=== PATIENT | female | born 1950 | race Caucasian/White ===

== ENCOUNTER 2016-09-04 21:58 | Emergency (ER) | payer MEDICARE, OTHER ==
[~2016-09-04 21:58] MED LIST: ADVAIR DISK2 IN; ALENDRONATE70 MG PO; ALLEGRA180 MG PO; AMOXICILLIN500 MG PO; ANTIVERT12.5 MG PO; ATIVAN0.5 MG PO; ATIVAN1 MG PO; BUPROPION150 M4 PO; BUSPAR30 MG PO; BUSPIRONE15 MG OR; CEFUROXIME500 MG OR; CELEBREX100 M1 PO; CHANTIX1 MG OR; CIPROFLOXACN500 MG PO; CLONAZEP ODT1 MG PO; CLONAZEPAM1 MG PO; DARVOCET N-100100 - OR; KLONOPIN1 MG PO; MECLIZINE25 MG PO; METRONIDAZOL500 MG PO; NORCO1 TAB PO; PHENERGAN25 MG/TAB PO; PREVPAC PO; PRILOSEC40 MG PO; PROVENTIL HFA IN; PROZAC20 MG PO; RANITIDINE150 MG OR; RESTORIL15 MG PO; RISPERDAL2 MG OR; RISPERDAL3 M1 PO; SEROQUEL200 MG OR; SEROQUEL400 MG OR; SPIRIVA HANDIHALER IN; SYNTHROID50 MCG PO; TEMAZEPAM30 MG PO; TRAZODONE150 MG PO; ULTRAM50 MG OR; WELLBUTRIN SR150 MG OR; WELLBUTRIN200 MG OR; WELLBUTRIN200 MG PO; ZANTAC150 M1 PO; ZPAK PO
== END 2016-09-04 22:10 | disposition left against medical advice (07) ==
LOC: ED 21:58 → LWOBS 22:10
DX: Z91.19 Patient's noncompliance with other medical treatment and regimen (principal)

== ENCOUNTER 2016-09-17 20:15 | Emergency (ER) | payer MEDICARE, OTHER ==
[~2016-09-17] VITALS: Ht 165.1 cm; Wt 98.0 kg
[2016-09-17 21:37] LABS: HEMATOCRIT 38.1 % (37.0-47.0); HEMOGLOBIN 12.8 g/dl (12.0-16.0); IMMATURE GRANULOCYTES 0.4 % (0.0-1.0); MEAN CELL VOLUME 90.3 fL CALC (80.0-100.0); MEAN CORPUSCULAR HGB 30.3 pG CALC (26.0-32.0); MEAN CORPUSCULAR HGB CONC 33.6 g/L CALC (32.0-36.0); NEUT# 7.96 thou/uL (2.00-7.15); RED BLOOD COUNT 4.22 mill/uL (4.20-5.60); RED CELL DISTRI WIDTH 18.5 % (11.5-15.5)
[2016-09-17 21:38] LABS: URINE BILIRUBIN - DIPSTICK NEGATIVE (NEGATIVE); URINE BLOOD DIPSTICK NEGATIVE (NEGATIVE); URINE CLARITY CLEAR; URINE COLOR YELLOW; URINE GLUCOSE - DIPSTICK NEGATIVE (NEGATIVE); URINE KETONE NEGATIVE (NEGATIVE); URINE LEUK ESTERASE TRACE (NEGATIVE); URINE NITRITE - DIPSTICK NEGATIVE (Negative); URINE PROTEIN - DIPSTICK NEGATIVE (NEG-TRACE); URINE SPECIFIC GRAVITY <=1.005; URINE UROBILINOGEN - DIPSTICK 0.2 E.U./dL (0.2)
[2016-09-17 21:59] LABS: ALBUMIN 3.8 g/dL (3.2-5.0); ALKALINE PHOSPHATASE 147 u/l (38-126); ANION GAP 14 (6-22 (CALC)); BILIRUBIN, TOTAL 0.4 mg/dL (0.0-1.4); BUN 4 mg/dL (8-23); BUN/CREATININE RATIO 5 (12-20 (CALC)); CALCIUM 9.2 mg/dL (8.4-10.2); CARBON DIOXIDE 27 mmol/l (22-30); CHLORIDE 96 mmol/l (95-108); CREATININE 0.8 mg/dL (0.5-1.0); GFR > 60 ML/MIN (>=60 (CALC)); GFR FOR AFR.AMER. > 60 ML/MIN (>=60 (CALC)); GLUCOSE 109 mg/dL (82-115); POTASSIUM 3.9 mmol/l (3.5-5.1); SGOT/AST 19 u/l (9-36); SGPT/ALT 26 u/l (11-66); SODIUM 133 mmol/l (137-146); TOTAL PROTEIN 7.1 g/dL (6.3-8.2)
[2016-09-17 22:11] LABS: MYOGLOBIN 49 ng/mL (0 - 62)
[2016-09-17 23:19] VITALS: BP 148/76
== END 2016-09-17 23:00 | disposition left against medical advice (07) ==
LOC: ED 20:15
PROVIDERS: Emergency Medicine
DX: R55 Syncope and collapse (principal); Z91.19 Patient's noncompliance with other medical treatment and regimen; R00.0 Tachycardia, unspecified

== ENCOUNTER 2016-11-13 03:59 | Emergency (ER) | payer MEDICARE, MEDICAID ==
[~2016-11-13] VITALS: Ht 165.1 cm; Wt 96.0 kg
[2016-11-13 04:59] LABS: HEMOGLOBIN 13.4 g/dl (12.0-16.0); IMMATURE GRANULOCYTES 0.6 % (0.0-1.0); MEAN CORPUSCULAR HGB 30.8 pG CALC (26.0-32.0); MEAN CORPUSCULAR HGB CONC 33.5 g/L CALC (32.0-36.0); NEUT# 8.94 thou/uL (2.00-7.15); RED BLOOD COUNT 4.35 mill/uL (4.20-5.60); RED CELL DISTRI WIDTH 14.2 % (11.5-15.5)
[2016-11-13 05:12] LABS: ALBUMIN 4.6 g/dL (3.2-5.0); ALKALINE PHOSPHATASE 160 u/l (38-126); AMYLASE 39 u/l (30-110); ANION GAP 23 (6-22 (CALC)); BUN 5 mg/dL (8-23); BUN/CREATININE RATIO 9 (12-20 (CALC)); CALCIUM 9.5 mg/dL (8.4-10.2); CARBON DIOXIDE 26 mmol/l (22-30); CHLORIDE 83 mmol/l (95-108); CREATININE 0.6 mg/dL (0.5-1.0); GFR > 60 ML/MIN (>=60 (CALC)); GFR FOR AFR.AMER. > 60 ML/MIN (>=60 (CALC)); GLUCOSE 146 mg/dL (82-115); LIPASE < 10 u/l (23-300); POTASSIUM 3.4 mmol/l (3.5-5.1); SGOT/AST 22 u/l (9-36); SGPT/ALT 28 u/l (11-66); SODIUM 129 mmol/l (137-146); TOTAL PROTEIN 8.5 g/dL (6.3-8.2)
[2016-11-13 05:22] LABS: MYOGLOBIN 54 ng/mL (0 - 62)
[2016-11-13 06:01] LABS: URINE BLOOD DIPSTICK SMALL (NEGATIVE); URINE CLARITY CLEAR; URINE COLOR YELLOW; URINE GLUCOSE - DIPSTICK NEGATIVE (NEGATIVE); URINE KETONE >=80 mg/dL (NEGATIVE); URINE LEUK ESTERASE NEGATIVE (NEGATIVE); URINE NITRITE - DIPSTICK NEGATIVE (Negative); URINE PROTEIN - DIPSTICK TRACE mg/dL (NEG-TRACE); URINE SPECIFIC GRAVITY >=1.030; URINE UROBILINOGEN - DIPSTICK 0.2 E.U./dL (0.2)
[2016-11-13 06:03] LABS: URINE BILIRUBIN - DIPSTICK NEGATIVE (NEGATIVE)
[2016-11-13 06:11] LABS: URINE BACTERIA FEW hpf; URINE HYALINE CAST FEW lpf (NONE-RARE); URINE MUCUS FEW hpf (NONE-FEW); URINE SQUAMOUS EPITHELIAL CELL MODERATE EPI/hpf (0-FEW)
[2016-11-13 08:53] VITALS: BP 166/99
== END 2016-11-13 08:54 | disposition short-term general hospital (02) ==
LOC: ED 03:59
PROVIDERS: Emergency Medicine
DX: S22.069A Unspecified fracture of T7-T8 vertebra, initial encounter for closed fracture (principal); R09.02 Hypoxemia; E87.1 Hypo-osmolality and hyponatremia; R11.2 Nausea with vomiting, unspecified; R10.12 Left upper quadrant pain; F43.10 Post-traumatic stress disorder, unspecified; E78.5 Hyperlipidemia, unspecified; M19.90 Unspecified osteoarthritis, unspecified site; K21.9 Gastro-esophageal reflux disease without esophagitis; F41.9 Anxiety disorder, unspecified; J44.9 Chronic obstructive pulmonary disease, unspecified; F17.210 Nicotine dependence, cigarettes, uncomplicated; X58.XXXA Exposure to other specified factors, initial encounter
CPT/HCPCS: Q9967; S0164

== ENCOUNTER 2016-11-27 05:19 | Emergency (ER) | payer MEDICARE, OTHER ==
[~2016-11-27] VITALS: Ht 165.1 cm; Wt 90.9 kg
[2016-11-27 06:47] LABS: ALBUMIN 4.1 g/dL (3.2-5.0); ALKALINE PHOSPHATASE 128 u/l (38-126); AMYLASE 39 u/l (30-110); ANION GAP 16 (6-22 (CALC)); BILIRUBIN, TOTAL 0.7 mg/dL (0.0-1.4); BUN 13 mg/dL (8-23); BUN/CREATININE RATIO 17 (12-20 (CALC)); CALCIUM 9.7 mg/dL (8.4-10.2); CARBON DIOXIDE 32 mmol/l (22-30); CHLORIDE 89 mmol/l (95-108); CREATININE 0.7 mg/dL (0.5-1.0); GFR > 60 ML/MIN (>=60 (CALC)); GFR FOR AFR.AMER. > 60 ML/MIN (>=60 (CALC)); GLUCOSE 135 mg/dL (82-115); LIPASE 19 u/l (23-300); POTASSIUM 3.3 mmol/l (3.5-5.1); SGOT/AST 16 u/l (9-36); SGPT/ALT 35 u/l (11-66); SODIUM 134 mmol/l (137-146); TOTAL PROTEIN 7.2 g/dL (6.3-8.2)
[2016-11-27 06:53] LABS: HEMATOCRIT 41.6 % (37.0-47.0); HEMOGLOBIN 13.8 g/dl (12.0-16.0); IMMATURE GRANULOCYTES 0.4 % (0.0-1.0); MEAN CELL VOLUME 92.7 fL CALC (80.0-100.0); MEAN CORPUSCULAR HGB 30.7 pG CALC (26.0-32.0); MEAN CORPUSCULAR HGB CONC 33.2 g/L CALC (32.0-36.0); NEUT# 10.53 thou/uL (2.00-7.15); RED BLOOD COUNT 4.49 mill/uL (4.20-5.60)
[2016-11-27 07:33] LABS: URINE BLOOD DIPSTICK TRACE-INTACT (NEGATIVE); URINE CLARITY SLIGHT CLOUDY; URINE COLOR YELLOW; URINE GLUCOSE - DIPSTICK NEGATIVE (NEGATIVE); URINE KETONE 15 mg/dL (NEGATIVE); URINE PH 6.5 (4.5-8.0); URINE PROTEIN - DIPSTICK TRACE mg/dL (NEG-TRACE)
[2016-11-27 07:37] LABS: URINE LEUK ESTERASE LARGE (NEGATIVE); URINE NITRITE - DIPSTICK POSITIVE (Negative)
[2016-11-27 07:38] LABS: URINE BILIRUBIN - DIPSTICK NEGATIVE (NEGATIVE)
[2016-11-27 07:41] LABS: URINE BACTERIA MANY hpf; URINE RBC 0-2 RBC/hpf (0-5); URINE WBC 50-100 WBC/hpf (0-5)
[2016-11-27] MEDS ORDERED: PERCOCET1 TA2 PO (07:48)
[2016-11-27] MEDS ORDERED: CEPHALEXIN500 MG PO (07:48)
[2016-11-27] MEDS ORDERED: ZOFRAN4 M1 PO (07:48)
[2016-11-27 08:13] VITALS: BP 172/88
== END 2016-11-27 08:13 | disposition home or self-care (01) ==
LOC: ED 05:19
PROVIDERS: Emergency Medicine
PROC: 0T9B70Z Drainage of Bladder with Drainage Device, Via Natural or Artificial Opening (ICD-10-PCS; principal; 2016-11-27)
DX: N39.0 Urinary tract infection, site not specified (principal); R10.12 Left upper quadrant pain; R11.2 Nausea with vomiting, unspecified; R19.7 Diarrhea, unspecified; R00.0 Tachycardia, unspecified; Z98.890 Other specified postprocedural states; B96.20 Unspecified Escherichia coli [E. coli] as the cause of diseases classified elsewhere; Z16.12 Extended spectrum beta lactamase (ESBL) resistance; R42 Dizziness and giddiness; F43.10 Post-traumatic stress disorder, unspecified
CPT/HCPCS: S0164

== ENCOUNTER 2017-03-31 11:54 | Emergency (ER) | payer MEDICARE, OTHER ==
[~2017-03-31] VITALS: Ht 165.1 cm; Wt 86.3 kg
[~2017-03-31 11:54] MED LIST changes: +CEPHALEXIN500 MG PO; +PERCOCET1 TA2 PO; +ZOFRAN4 M1 PO
[2017-03-31 13:06] LABS: HEMATOCRIT 37.3 % (37.0-47.0); HEMOGLOBIN 11.9 g/dl (12.0-16.0); IMMATURE GRANULOCYTES 0.4 % (0.0-1.0); MEAN CELL VOLUME 99.7 fL CALC (80.0-100.0); MEAN CORPUSCULAR HGB 31.8 pG CALC (26.0-32.0); MEAN CORPUSCULAR HGB CONC 31.9 g/L CALC (32.0-36.0); NEUT# 6.29 thou/uL (2.00-7.15); RED BLOOD COUNT 3.74 mill/uL (4.20-5.60); RED CELL DISTRI WIDTH 15.3 % (11.5-15.5)
[2017-03-31 13:24] LABS: ALBUMIN 3.7 g/dL (3.2-5.0); ALKALINE PHOSPHATASE 182 u/l (38-126); ANION GAP 13 (6-22 (CALC)); BILIRUBIN, TOTAL 0.4 mg/dL (0.0-1.4); BUN 5 mg/dL (8-23); BUN/CREATININE RATIO 8 (12-20 (CALC)); CARBON DIOXIDE 33 mmol/l (22-30); CHLORIDE 96 mmol/l (95-108); CREATININE 0.7 mg/dL (0.5-1.0); GFR > 60 ML/MIN (>=60 (CALC)); GFR FOR AFR.AMER. > 60 ML/MIN (>=60 (CALC)); SGOT/AST 28 u/l (9-36); SGPT/ALT 35 u/l (11-66); SODIUM 138 mmol/l (137-146); TOTAL PROTEIN 6.4 g/dL (6.3-8.2)
[2017-03-31] MEDS ORDERED: MEDDOSEPAK PO (14:25)
[2017-03-31] MEDS ORDERED: ZITHROMAX250 MG PO (14:25)
[2017-03-31] MEDS ORDERED: RISPERDAL2 MG PO ×2 (14:27→14:28)
[2017-03-31] MEDS ORDERED: BUSPAR5 MG PO (14:28)
[2017-03-31] MEDS ORDERED: CLONAZEPAM1 MG PO (14:28)
[2017-03-31] MEDS ORDERED: PERCOCET 5/325M1 TAB PO (14:29)
[2017-03-31] MEDS ORDERED: PROZAC10 MG PO (14:29)
[2017-03-31 14:30] VITALS: BP 119/71
== END 2017-03-31 14:40 | disposition home or self-care (01) ==
LOC: ED 11:54
PROVIDERS: Emergency Medicine
DX: J44.1 Chronic obstructive pulmonary disease with (acute) exacerbation (principal); R06.02 Shortness of breath; Z99.81 Dependence on supplemental oxygen

== ENCOUNTER 2017-04-12 19:43 | Emergency (ER) | payer MEDICARE, OTHER ==
[~2017-04-12] VITALS: Ht 165.1 cm; Wt 86.0 kg
[~2017-04-12 19:43] MED LIST changes: +BUSPAR5 MG PO; +MEDDOSEPAK PO; +PERCOCET 5/325M1 TAB PO; +PROZAC10 MG PO; +RISPERDAL2 MG PO; +ZITHROMAX250 MG PO
[2017-04-12 20:50] LABS: HEMATOCRIT 39.8 % (37.0-47.0); HEMOGLOBIN 12.7 g/dl (12.0-16.0); IMMATURE GRANULOCYTES 0.5 % (0.0-1.0); MEAN CELL VOLUME 99.3 fL CALC (80.0-100.0); MEAN CORPUSCULAR HGB 31.7 pG CALC (26.0-32.0); MEAN CORPUSCULAR HGB CONC 31.9 g/L CALC (32.0-36.0); NEUT# 9.85 thou/uL (2.00-7.15); RED BLOOD COUNT 4.01 mill/uL (4.20-5.60); RED CELL DISTRI WIDTH 14.5 % (11.5-15.5)
[2017-04-12 20:51] LABS: URINE BILIRUBIN - DIPSTICK NEGATIVE (NEGATIVE); URINE BLOOD DIPSTICK NEGATIVE (NEGATIVE); URINE COLOR YELLOW; URINE GLUCOSE - DIPSTICK NEGATIVE (NEGATIVE); URINE KETONE NEGATIVE (NEGATIVE); URINE LEUK ESTERASE NEGATIVE (NEGATIVE); URINE NITRITE - DIPSTICK NEGATIVE (Negative); URINE PH 8.5 (4.5-8.0); URINE PROTEIN - DIPSTICK 30 mg/dL (NEG-TRACE); URINE SPECIFIC GRAVITY 1.015; URINE UROBILINOGEN - DIPSTICK 0.2 E.U./dL (0.2)
[2017-04-12 20:55] LABS: URINE CLARITY CLEAR; URINE RBC 0-2 RBC/hpf (0-5); URINE SQUAMOUS EPITHELIAL CELL FEW EPI/hpf (0-FEW); URINE WBC 0-2 WBC/hpf (0-5)
[2017-04-12 21:05] LABS: ALBUMIN 3.7 g/dL (3.2-5.0); ALKALINE PHOSPHATASE 164 u/l (38-126); AMYLASE < 30 u/l (30-110); ANION GAP 15 (6-22 (CALC)); BILIRUBIN, TOTAL 0.3 mg/dL (0.0-1.4); BUN 8 mg/dL (8-23); BUN/CREATININE RATIO 11 (12-20 (CALC)); CARBON DIOXIDE 33 mmol/l (22-30); CHLORIDE 92 mmol/l (95-108); CREATININE 0.7 mg/dL (0.5-1.0); GFR > 60 ML/MIN (>=60 (CALC)); GFR FOR AFR.AMER. > 60 ML/MIN (>=60 (CALC)); LIPASE < 10 u/l (23-300); POTASSIUM 3.5 mmol/l (3.5-5.1); SGOT/AST 17 u/l (9-36); SGPT/ALT 21 u/l (11-66); SODIUM 137 mmol/l (137-146); TOTAL PROTEIN 6.4 g/dL (6.3-8.2)
[2017-04-12] MEDS ORDERED: CIPROFLOXACN500 MG PO (23:50)
[2017-04-13 00:01] VITALS: BP 164/91
== END 2017-04-12 23:53 | disposition home or self-care (01) ==
LOC: ED 19:43
PROVIDERS: Emergency Medicine
PROC: 0T9B70Z Drainage of Bladder with Drainage Device, Via Natural or Artificial Opening (ICD-10-PCS; principal; 2017-04-12)
DX: N39.0 Urinary tract infection, site not specified (principal); R10.31 Right lower quadrant pain
CPT/HCPCS: Q9967

== ENCOUNTER 2017-08-23 20:29 | Emergency (ER) | payer MEDICARE, OTHER ==
[~2017-08-23] VITALS: Ht 165.1 cm; Wt 92.7 kg
[2017-08-23 21:07] LABS: HEMOGLOBIN 11.9 g/dl (12.0-16.0); IMMATURE GRANULOCYTES 0.3 % (0.0-1.0); MEAN CELL VOLUME 98.9 fL CALC (80.0-100.0); MEAN CORPUSCULAR HGB 32.7 pG CALC (26.0-32.0); MEAN CORPUSCULAR HGB CONC 33.1 g/L CALC (32.0-36.0); NEUT# 7.12 thou/uL (2.00-7.15); RED BLOOD COUNT 3.64 mill/uL (4.20-5.60); RED CELL DISTRI WIDTH 15.7 % (11.5-15.5)
[2017-08-23 21:21] LABS: ALBUMIN 3.4 g/dL (3.2-5.0); ALKALINE PHOSPHATASE 129 u/l (38-126); BILIRUBIN, TOTAL 0.2 mg/dL (0.0-1.4); BUN 7 mg/dL (8-23); BUN/CREATININE RATIO 11 (12-20 (CALC)); CARBON DIOXIDE 32 mmol/l (22-30); CHLORIDE 85 mmol/l (95-108); CREATININE 0.6 mg/dL (0.5-1.0); GFR > 60 ML/MIN (>=60 (CALC)); GFR FOR AFR.AMER. > 60 ML/MIN (>=60 (CALC)); SGOT/AST 17 u/l (9-36); SGPT/ALT 21 u/l (11-66); TOTAL PROTEIN 6.7 g/dL (6.3-8.2)
[2017-08-23 21:22] LABS: ANION GAP 15 (6-22 (CALC)); POTASSIUM 2.9 mmol/l (3.5-5.1); SODIUM 129 mmol/l (137-146)
[2017-08-24 00:01] VITALS: BP 146/87
== END 2017-08-24 00:01 | disposition home or self-care (01) ==
LOC: ED 20:29
PROVIDERS: Emergency Medicine
DX: T17.228A Food in pharynx causing other injury, initial encounter (principal); E87.6 Hypokalemia; M19.90 Unspecified osteoarthritis, unspecified site; J43.9 Emphysema, unspecified; X58.XXXA Exposure to other specified factors, initial encounter; Z87.01 Personal history of pneumonia (recurrent); R94.31 Abnormal electrocardiogram [ECG] [EKG]

== ENCOUNTER 2017-12-28 14:02 | Inpatient (IN) | payer MEDICARE, OTHER ==
[~2017-12-28] VITALS: Ht 165.1 cm; Wt 83.1 kg
--- NOTE | 2017-12-28 14:02 | NUR ---
PT IMMEDIATELY TO TX ROOM VIA WC. SPO2 94% ON 2L
--- NOTE | 2017-12-28 14:03 | NUR ---
PT TACHYPNEIC AND SOB, UNABLE TO SPEAK IN COMPLETE SENTENCES. ASSISTED INTO BED WITH HOB ELEVATED, HOME O2@2LPM VIA NC. TRANSFERED TO ROOM O2 OF SAME. PT STATES SHE BECAME DYSPNEIC APPROX 30 MIN WINDOW CLEANER.
[2017-12-28 14:36] LABS: HEMATOCRIT 35.1 % (37.0-47.0); HEMOGLOBIN 11.1 g/dl (12.0-16.0); IMMATURE GRANULOCYTES 0.3 % (0.0-5.0); MEAN CELL VOLUME 99.2 fL CALC (80.0-100.0); MEAN CORPUSCULAR HGB 31.4 pG CALC (26.0-32.0); MEAN CORPUSCULAR HGB CONC 31.6 g/L CALC (32.0-36.0); NEUT# 6.25 thou/uL (2.00-7.15); RED BLOOD COUNT 3.54 mill/uL (4.20-5.60); RED CELL DISTRI WIDTH 14.8 % (11.5-15.5)
[2017-12-28 14:49] LABS: ALKALINE PHOSPHATASE 123 u/l (38-126); ANION GAP 11 (6-22 (CALC)); BILIRUBIN, TOTAL 0.4 mg/dL (0.0-1.4); BUN 9 mg/dL (8-23); BUN/CREATININE RATIO 12 (12-20 (CALC)); CARBON DIOXIDE 36 mmol/l (22-30); CHLORIDE 94 mmol/l (95-108); CREATININE 0.8 mg/dL (0.5-1.0); GFR > 60 ML/MIN (>=60 (CALC)); GFR FOR AFR.AMER. > 60 ML/MIN (>=60 (CALC)); POTASSIUM 3.1 mmol/l (3.5-5.1); SGOT/AST 24 u/l (9-36); SODIUM 138 mmol/l (137-146)
[2017-12-28 14:55] LABS: ALBUMIN 3.9 g/dL (3.2-5.0); TOTAL PROTEIN 7.5 g/dL (6.3-8.2)
--- NOTE | 2017-12-28 15:09 | NUR ---
ASSISTED PT WITH MAKING PHONE CALL TO FAMILY. MAINTAINED SUPINE IN BED WITH HOB ELEVATED. PT RESP EVEN AND UNLABORED. O2 CONTINUES @ 2LPM VIA NC. AWARE OF AWAITING TEST RESULTS.
--- NOTE | 2017-12-28 15:22 | NUR ---
PT UP TO BSC, BECAME SLIGHTLY SOB ,DENIES CHEST PAIN. VSS. CONTINUOUS O2@2LPM VIA NC. RECOVERED EASILY ONCE RETURNED TO BED.
--- NOTE | 2017-12-28 15:50 | NUR ---
JOSE sopke with regarding admission status after reviewing the chart and advised on observation at that time as the CXR was not completed. voiced agrement. JOSE advised a conversation will happen with prior to admission for further consideration. voiced agreement. JOSE then discussed the case with and he reviewed the CXR and stated" the patient has a definite pneumonia and will be admitted as an Inpatient. JOSE stated" it is your decision sir" and left the room.
--- NOTE | 2017-12-28 15:55 | NUR ---
PT ASSISTED TO BEDSIDE COMMODE. PT DENIES COMPLAINTS AT THIS TIME.
[2017-12-28] MEDS ORDERED: HYDROCO/APAP1 TA9 PO (16:33)
--- NOTE | 2017-12-28 16:45 | NUR ---
S: MAGDALENE VIGIL is a 67 F who presents with URI. She has a history of COPD,Emphysema,Arthritis, Pneumonia . All medications in patient's chart were reviewed O: VS: BP 176/93, P 105 , RR 26,T 98.2 W 67kg, HT 65in, Scr=0.8,CrCl= 49.1ml/min A: Blood culture is pending P: Patient is on Azithromycin and Ceftriaxone Vancomycin ordered for pharmacy to dose. Start Vancomycin 1g IV Q12H. Vancomycin trough is drawn before the 4th dose on 12/30/17 @ 0530. Vancomycin goal trough is between 15-20 mcg/ml. Pharmacy will follow and or advise on antibiotics use as needed.
--- NOTE | 2017-12-28 17:02 | NUR ---
CALLED REPORT TO HARRIET ALEXANDER LPN
--- NOTE | 2017-12-28 17:08 | NUR ---
PT ASSISTED UP TO BSC IN NO ACUTE DISTRESS. VSS.
--- NOTE | 2017-12-28 17:11 | NUR ---
PT TRANSPORTED TO ME VIA STRETCHER BY CHARGE NURSE IN STABLE CONDITION
[2017-12-28 17:36] VITALS: BP 187/91
--- NOTE | 2017-12-28 17:58 | NUR ---
PT ARRIVED TO UNIT AT 1711 VIA STRETCHER ACCOMPIANED BY ER STAFF. PT AMBULATED FROM STRETCHER TO BED W/ STEADY GAIT. PT ASSESSMENT COMPLETE. A/OX3. SPEECH IS CLEAR. RESP EVEN AND UNLABORED. LUNG SOUNDS CLEAR. TELE IN PLACE. PT HAS ANXIETY AT THIS TIME DUE TO WORRYING ABOUT IF SHE WILL GET MEDICATION FOR PAIN, BLOOD PRESSURE, AND ANXIETY. DISCUSSED W/ PT ABOUT MEDICATION ADMINISTRATION. ANXIETY LEVEL DECREASED. BOWEL SOUNDS HYPOACTIVE. STRONG RADIAL AND PEDAL PULSES. #20 RAC SL. FLUSHED AND PATENT. SITE APPEARS HEALTHY. SKIN INTACT. PT C/O 10 OUT OF 10 BACK PAIN. REPOSITIONED IN BED FOR COMFORT. POC DISCUSSED. SAFETY PRECAUTIONS IN PLACE. CALL LIGHT IN REACH. WILL CONTINUE TO MONITOR
[2017-12-28 18:10] VITALS: BP 162/85
--- NOTE | 2017-12-28 18:10 | NUR ---
SPOKE W/ DR. RAPP REGARDING PT VS, TEMP, ANXIETY, AND PAIN. BLOOD PRESSURE 162/85 HR 113, TEMP 100.2. NEW MEDICATION ORDERS GIVEN AND SENT TO PHARMACY
--- NOTE | 2017-12-28 19:10 | NUR ---
BEDSIDE REPORT RECEIVED FROM INES LARIOS. PT RESTING IN BED SEMI FOWLERS TALKING ON THE PHONE WITH HER SON; ALERT AND ORIENTED. DENIES PAIN CURRENTLY; STATES THAT PAIN MEDICATION WAS EFFECTIVE. RESPIRATIONS EVEN AND SLIGHTLY LABORED ON OXYGEN. VANCOMYCIN NOW INFUSING. PLAN OF CARE DISCUSSED. PT ENCOURAGED TO VERBALIZE CONCERNS. STATES UNDERSTANDING. SAFETY MEASURES IN PLACE. CALL LIGHT WITHIN REACH.
[2017-12-28 20:00] VITALS: BP 138/85
[2017-12-28 23:10] LABS: URINE BILIRUBIN - DIPSTICK NEGATIVE (NEGATIVE); URINE BLOOD DIPSTICK TRACE-INTACT (NEGATIVE); URINE COLOR YELLOW; URINE GLUCOSE - DIPSTICK NEGATIVE (NEGATIVE); URINE KETONE NEGATIVE (NEGATIVE); URINE LEUK ESTERASE NEGATIVE (NEGATIVE); URINE NITRITE - DIPSTICK NEGATIVE (Negative); URINE PROTEIN - DIPSTICK NEGATIVE (NEG-TRACE); URINE SPECIFIC GRAVITY 1.015; URINE UROBILINOGEN - DIPSTICK 0.2 E.U./dL (0.2)
[2017-12-28 23:12] LABS: URINE CLARITY CLEAR
[2017-12-29] VITALS (7 sets, daily range): BP systolic 145–166; BP diastolic 79–96
--- NOTE | 2017-12-29 | NUR ---
LORTAB GIVEN FOR C/O SEVERE HEADACHE AND COOL CLOTH APPLIED. RESPIRATIONS EVEN AND UNLABORED ON 2L OF OXYGEN. IV SITE APPEARS HEALTHY AND FLUSHES. TELE ON. BLOOD PRESSURE SLIGHTLY ELEVATED AT THIS TIME WILL CONTINUE TO MONITOR. PT IS SBA TO BSC. SAFETY MEASURES IN PLACE. CALL LIGHT WITHIN REACH.
--- NOTE | 2017-12-29 04:37 | NUR ---
PT AMBULATED INTO BATHROOM TO VOID. NO ACUTE CHANGES IN CONDITION THROUGHOUT THE NIGHT.
[2017-12-29 05:13] LABS: HEMATOCRIT 34.8 % (37.0-47.0); IMMATURE GRANULOCYTES 0.5 % (0.0-5.0); MEAN CELL VOLUME 98.9 fL CALC (80.0-100.0); MEAN CORPUSCULAR HGB 31.3 pG CALC (26.0-32.0); MEAN CORPUSCULAR HGB CONC 31.6 g/L CALC (32.0-36.0); NEUT# 8.41 thou/uL (2.00-7.15); RED BLOOD COUNT 3.52 mill/uL (4.20-5.60); RED CELL DISTRI WIDTH 14.8 % (11.5-15.5)
[2017-12-29 05:27] LABS: ALBUMIN 3.7 g/dL (3.2-5.0); ALKALINE PHOSPHATASE 116 u/l (38-126); BILIRUBIN, TOTAL 0.3 mg/dL (0.0-1.4); BUN 8 mg/dL (8-23); BUN/CREATININE RATIO 14 (12-20 (CALC)); CARBON DIOXIDE 35 mmol/l (22-30); CHLORIDE 95 mmol/l (95-108); CREATININE 0.6 mg/dL (0.5-1.0); GFR > 60 ML/MIN (>=60 (CALC)); GFR FOR AFR.AMER. > 60 ML/MIN (>=60 (CALC)); MAGNESIUM 2.3 mg/dL (1.6-2.3); SGOT/AST 16 u/l (9-36); SODIUM 137 mmol/l (137-146); TOTAL PROTEIN 6.9 g/dL (6.3-8.2)
[2017-12-29 05:29] LABS: ANION GAP 11 (6-22 (CALC))
--- NOTE | 2017-12-29 07:00 | NUR ---
REPORT RECEIVED FROM JOHN SALCIDO. PLAN OF CARE REVIEWED. PT STATES UNDERSTANDING. FALL PRECAUTIONS REINFORCED. CALL LIGHT REVIEWED AND IN REACH.
--- NOTE | 2017-12-29 08:15 | NUR ---
PT REPORTS SEVERE HEADACHE. LORTAB PO ADMINISTERED. PT REPORTS MOSTLY PAIN IS RELIEVED. REPORTING OF CONCERNS ENCOURAGED. PT STATES UNDERSTANDING.
--- NOTE | 2017-12-29 13:11 | NUR ---
PT SITTING UPRIGHT IN BED. REPORTS SOME RELIEF OF BACK PAIN, CHRONIC IN NATURE, FROM RECENT LORTAB PO ADMINISTRATION. IS PROVIDED. PT EDUCATED ON USE AND INDICATION. 1000ML INCENTIVE VOLUME ACHIEVED, GOAL OF 1500 ML SET.
--- NOTE | 2017-12-29 17:10 | NUR ---
PT'S FAMILY MEMBERS AT BEDSIDE FOR VISIT. PT REPORTS SOME RELIEF OF BACK PAIN FROM RECENT LORTAB PO ADMINISTRATION. NO OTHER COMPLAINTS AT THIS TIME.
--- NOTE | 2017-12-29 17:30 | NUR ---
PT. AMBULATED IN HALLWAYS W/ TITLE PROCESSOR AND O2 VIA NC. TOLERATED ACTIVITY WELL. REPORTS GENERALIZED WEAKNESS, BUT GAIT STEADY. DENIES DIZZINESS. MILD SOB W/ EXERT NOTED.
--- NOTE | 2017-12-29 20:00 | NUR ---
REPORT RECIEVED FROM OFFGOING NURSE. PT REQUESTED PAIN PILL. LORTAB EFFECTIVE. LUNG SOUNDS DIMINISHED. PT TOLERATED MEDS WELL. POC EXPLAINED TO PT. PT VOICED UNDERSTANDING. BED IN LOWEST POSITION, CALL LIGHT WITHIN REACH. WILL MONITOR.
--- NOTE | 2017-12-30 | NUR ---
PT REQUESTED PAIN PILL FOR BACK PAIN. PAIN MED ADMINITERED. ENCOURAGED TO REPOSITION IN THE BED TO HELP WITH PAIN. PT VOICED UNDERSTANDING. BED IN LOWEST POSITION. CALL LIGHT WITHIN REACH. WILL MONITOR.
[2017-12-30 04:38] VITALS: BP 138/80
[2017-12-30 06:02] LABS: HEMATOCRIT 31.9 % (37.0-47.0); HEMOGLOBIN 10.3 g/dl (12.0-16.0); IMMATURE GRANULOCYTES 0.6 % (0.0-5.0); MEAN CORPUSCULAR HGB 31.3 pG CALC (26.0-32.0); MEAN CORPUSCULAR HGB CONC 32.3 g/L CALC (32.0-36.0); NEUT# 17.63 thou/uL (2.00-7.15); RED BLOOD COUNT 3.29 mill/uL (4.20-5.60)
[2017-12-30 06:09] LABS: ALBUMIN 3.5 g/dL (3.2-5.0); ALKALINE PHOSPHATASE 100 u/l (38-126); BILIRUBIN, TOTAL 0.3 mg/dL (0.0-1.4); BUN 13 mg/dL (8-23); BUN/CREATININE RATIO 24 (12-20 (CALC)); CARBON DIOXIDE 32 mmol/l (22-30); CHLORIDE 89 mmol/l (95-108); CREATININE 0.5 mg/dL (0.5-1.0); GFR > 60 ML/MIN (>=60 (CALC)); GFR FOR AFR.AMER. > 60 ML/MIN (>=60 (CALC)); POTASSIUM 3.6 mmol/l (3.5-5.1); SGOT/AST 16 u/l (9-36); TOTAL PROTEIN 6.6 g/dL (6.3-8.2)
[2017-12-30 06:14] LABS: ANION GAP 13 (6-22 (CALC)); SODIUM 130 mmol/l (137-146)
--- NOTE | 2017-12-30 07:00 | NUR ---
SHIFT CHANGE REPORT FROM FABIANO RIVAS AWAKE ALERT AND ORIENTED, O2 @ 2L VIA NC IN PLACE, TELE MONITOR IN PLACE, C/O LOWER BACK PAIN AND CONCERN ADDRESSED, ASSISTED TO BSC AND BACK TO BED, CALL RUCKER IN REACH.
--- NOTE | 2017-12-30 07:41 | NUR ---
Vancomycin consult Vancomycin single level analysis: Current dose being given: 1000 mg Current dosing interval: 12 hrs Current infusion time (hrs): 2 Single level Trough Data: Trough level obtained: 10 mcg/ml Timing of trough - Number of hours before next dose: 0.5 Hrs Desired peak: 30 mcg/ml Desired trough: 15 mcg/ml New rate constant (karen): 0.087 hr-1 New half-life: 7.97 Hours New Vd from levels: 58.10 Liters (0.7 L/kg) Vancomycin 1500 mg q 12 hrs. Infuse over 2 hrs Expected Cpeak: 37 mcg/ml Expected Ctrough: 15 mcg/ml
[2017-12-30 08:47] VITALS: BP 156/74
--- NOTE | 2017-12-30 10:26 | NUR ---
MEDICAL TEAM HERE ROUNDING AND DISCUSSED PLAN OF CARE WITH PT, D/C HOME LATER PLANNED.
[2017-12-30] MEDS ORDERED: MEDROL DOSEPAK4 MG PO (10:59)
[2017-12-30] MEDS ORDERED: DOXYCYCL HYC100 MG PO (10:59)
[2017-12-30] MEDS ORDERED: IRON325 M1 PO (10:59)
[2017-12-30] MEDS ORDERED: B-121000 MC1 PO (12:16)
[2017-12-31] MEDS ORDERED: AMLODIPINE BESYL5 MG PO (09:59)
[2017-12-31] MEDS ORDERED: BUSPAR10 M1 PO (10:45)
[2017-12-31] MEDS ORDERED: BUSPAR10 MG PO (10:46)
== END 2017-12-30 12:11 | disposition home or self-care (01) | DRG 190 ==
LOC: ED 14:02 → ED-I 15:28 → ED 15:53 → MS2 15:57
PROVIDERS: Emergency Medicine; ADMIT Internal Medicine Nephrology; ATTEND Internal Medicine Nephrology
DX: J44.1 Chronic obstructive pulmonary disease with (acute) exacerbation (principal); J18.9 Pneumonia, unspecified organism; E87.2 Acidosis; D50.9 Iron deficiency anemia, unspecified; I10 Essential (primary) hypertension; E78.5 Hyperlipidemia, unspecified; J44.0 Chronic obstructive pulmonary disease with (acute) lower respiratory infection; M19.90 Unspecified osteoarthritis, unspecified site; R06.89 Other abnormalities of breathing; S22.42XD Multiple fractures of ribs, left side, subsequent encounter for fracture with routine healing; X58.XXXD Exposure to other specified factors, subsequent encounter; Z87.01 Personal history of pneumonia (recurrent); Z99.81 Dependence on supplemental oxygen; Z87.891 Personal history of nicotine dependence
CPT/HCPCS: J1650; J1756; J3370; J3475; Q9967

== ENCOUNTER 2017-12-30 14:22 | Inpatient (IN) | payer MEDICARE, OTHER ==
[~2017-12-30] VITALS: Ht 165.1 cm; Wt 75.0 kg
[2017-12-30] VITALS (8 sets, daily range): BP systolic 144–183; BP diastolic 76–101
[~2017-12-30 14:22] MED LIST changes: +B-121000 MC1 PO; +DOXYCYCL HYC100 MG PO; +HYDROCO/APAP1 TA9 PO; +IRON325 M1 PO; +MEDROL DOSEPAK4 MG PO
--- NOTE | 2017-12-30 14:30 | NUR ---
PT IMMEDIATELY TO TX ROOM VIA WC.
--- NOTE | 2017-12-30 14:35 | NUR ---
PT SITTING UPRIGHT IN STRETCHER WITH BILATERAL DMINISHED LS. PT IN TRIPOD POSITION IN STRETCHER. SAO2 89% ON 2 L NC AT THIS TIME. PT CONVERSATIONALLY DYSPNIC BUT DENIES ANY CP AT THIS TIME. MD AT BEDSIDE.
--- NOTE | 2017-12-30 14:44 | NUR ---
RT AT BEDSIDE, PT PLACED ON BIPAP PER DR ZAMBRANO, NEBULIZER TX IN PROGRESS. RR 34.
--- NOTE | 2017-12-30 15:00 | NUR ---
PT CONTINUES TO BE HYPERTENSIVE. MD NOTIFED AND AWAITING NEW ORDERS.
[2017-12-30 15:08] LABS: HEMATOCRIT 35.9 % (37.0-47.0); HEMOGLOBIN 11.5 g/dl (12.0-16.0); MEAN CELL VOLUME 96.5 fL CALC (80.0-100.0); MEAN CORPUSCULAR HGB 30.9 pG CALC (26.0-32.0); NEUT# 21.67 thou/uL (2.00-7.15); RED BLOOD COUNT 3.72 mill/uL (4.20-5.60); RED CELL DISTRI WIDTH 15.2 % (11.5-15.5)
[2017-12-30 15:23] LABS: PROTHROMBIN TIME 10.1 SECONDS (9.0-12.5)
[2017-12-30 15:25] LABS: ALBUMIN 4.2 g/dL (3.2-5.0); ALKALINE PHOSPHATASE 107 u/l (38-126); ANION GAP 18 (6-22 (CALC)); BILIRUBIN, TOTAL 0.5 mg/dL (0.0-1.4); BUN 13 mg/dL (8-23); BUN/CREATININE RATIO 25 (12-20 (CALC)); CARBON DIOXIDE 28 mmol/l (22-30); CHLORIDE 88 mmol/l (95-108); CREATININE 0.5 mg/dL (0.5-1.0); GFR > 60 ML/MIN (>=60 (CALC)); GFR FOR AFR.AMER. > 60 ML/MIN (>=60 (CALC)); POTASSIUM 3.9 mmol/l (3.5-5.1); SGOT/AST 26 u/l (9-36); SODIUM 130 mmol/l (137-146); TOTAL PROTEIN 7.8 g/dL (6.3-8.2)
--- NOTE | 2017-12-30 15:30 | NUR ---
PT APPEARS TO BE ANXIOUS AT THIS TIME. PLAN OF CARE DISCUSSED WITH PT. SA02 100% ON BIPAP AND RR 20. PT HR 81 AND BP 150/83. CALL RUCKER WITHIN REACH, WILL CONTINUE TO MONITOR.
[2017-12-30 15:37] LABS: MYOGLOBIN 84 ng/mL (0 - 62)
--- NOTE | 2017-12-30 15:40 | NUR ---
PT VISITOR AT BEDSIDE. PT TALKING THROUGH BIPAP WITH VISITOR. BOTH UPDATED ON PENDING RESULTS. CALL RUCKER WITHIN REACH.
--- NOTE | 2017-12-30 15:55 | NUR ---
ASSISTED PT ON BEDPAN. PT DENIES ANY NEEDS. CALL RUCKER WITHIN REACH.
--- NOTE | 2017-12-30 16:15 | NUR ---
MD AT BEDSIDE TO DISCUSS RESULTS AND PLAN FOR ADMISSION.
--- NOTE | 2017-12-30 16:30 | NUR ---
Admission Note Report Given to: MAMADOU, ICU Transported by: Wheelchair X Stretcher Transported with: X Nurse Transporter X Patent IV O2 X Interventional Cardiologist PT TO ICU 2 VIA WHEELCHAIR ON NC. RT AT BEDSIDE TO TRANSPORT BIPAP. PT TALKING IN COMPLETE SENTENCES WITH NO SIGN OF RESPIRATORY DISTRESS.
--- NOTE | 2017-12-30 16:45 | NUR ---
PT TO ICU #2 BY STRETCHER. ON BIPAP MONITOR IN ROOM NOT WORKING. WILL CONTINUE TO TRY TO GET MONITOR TO WORK.
--- NOTE | 2017-12-30 16:50 | NUR ---
#16 CATH ZUÑIGA INSERTED PER LYLA DE LA O ORDERS FOR STRICT I&O
--- NOTE | 2017-12-30 17:00 | NUR ---
PT C/O SOB. STATES WAS DC FROM THIS [facility] x2 HOURS, THEN RETURNED TO ER FOR SOB. PT ARRIVED A&Ox4. FRIENDLY, COOPERATIVE WITH STAFF. PT BREATHING WITH BIPAP. CRACKLES IN ALL BASES. STRONG PULSES x4. SKIN WARM/DRY/PINK. CLEAR YELLOW URINE DRAINING FROM CATH ZUÑIGA TO BAG. PT C/O CHRONIC BACK PAIN. STATES SHE NEED XANAX & HYDROCODONE EVERY VISIT. EYES PERRLA @3. STRONG PHYSICS PROFESSOR. ARMENTA. ABD SOFT/NONTENDER, ACTIVE BS. DENIES N/V/D. STATES NO BM SINCE TUESDAY. DENIES FALLS. STATES SHE LIVES WITH HER "SON" & DRIVES.
--- NOTE | 2017-12-30 17:08 | NUR ---
PLEB @BEDSIDE FOR LA DRAW.
--- NOTE | 2017-12-30 17:45 | NUR ---
PT C/O MASK FIT IMPROPERALLY. RT @BEDSIDE FOR CHECK.
--- NOTE | 2017-12-30 17:50 | NUR ---
RT PLACED PT ON 2L NC.
--- NOTE | 2017-12-30 17:50 | NUR ---
PT GIVEN A DINNER TRAY BUT PT STATES SHE DOESNT WANT TO EAT RIGHT NOW. PT TALKING ON THE PORT PHONE.
--- NOTE | 2017-12-30 18:50 | NUR ---
REPORT FROM Octavia DIAZ RN. ASSUMED PT. CARE.
--- NOTE | 2017-12-30 19:20 | NUR ---
PT. RESTING IN BED IN NO DISTRESS. REPORTS THAT SHE IS ANXIOUS. ASKING FOR PAIN MEDICATION AND XANAX. PT. STATES SHE WAS ON THESE MEDS WHEN SHE WAS HERE EARLIER TODAY. PT. RETURNED AFTER BEING DISCHARGED FOR ONLY 2 HOURS. RESPS EVEN, SHALLOW, UNLABORED AT THIS TIME. HR SLIGHTLY ELEVATED. SINUS TACH AT 102. YRN ARMENTA. REPORTS 10/10 PAIN TO BACK, BUT APPEARS IN NO DISTRESS. STATES NO BM SINCE TUESDAY. PULSES WEAK TO DORSALIS PEDIS. RADIAL PULSES INTACT. DIMINISHED THROUGHOUT.
--- NOTE | 2017-12-30 19:45 | NUR ---
PT. UPDATED ON PLAN OF CARE. VANCO INFUSING AT THIS TIME WITHOUT SX OF INFILTRATION OR REACTIONS. IV BETTER SECURED AT THIS TIME. INFORMED OF AWAITING TO PROFILE HER MED REQUESTS.
--- NOTE | 2017-12-30 19:55 | NUR ---
PT. CROWN IRONER OPERATOR LIGHT REPEATEDLY FOR MULTIPLE MINOR NEEDS. PT. ASKING NURSE FOR ANXIETY AND PAIN MEDICATION. AGAIN INFORMED AWAITING MEDS TO BE PROFILED.
--- NOTE | 2017-12-30 20:25 | NUR ---
PT. DEMANDING STOCKINGS BE REMOVED AT THIS TIME. REMOVED PER PT. REQUEST. PT. ALSO REQUESTING ZUÑIGA BE REMOVED. PT. UPDATED THAT DUE TO HER BREATHING AND SINCE SHE HAS PUT OUT 3600 CC IN THE LAST 2 HOURS, THE ZUÑIGA SHOULD NOT BE REMOVED FOR LIKELY DETERIORATION OF HER RESPIRATIONS. PT. AGREEABLE.
--- NOTE | 2017-12-30 21:05 | NUR ---
PT. AGAIN ON THE CALL LIGHT. ENCOURAGE TO STATE MULTIPLE NEEDS AT ONCE RATHER THAN TO UTILIZE THE CALL LIGHT EVERY 3-4 MINUTES.
--- NOTE | 2017-12-30 22:31 | NUR ---
PT. RESTING IN BED WITH EYES CLOSED IN NO DISTRESS. RESPS REMAIN EVEN, SHALLOW, UNLABORED. VANCO INFUSED. NO REACTIONS NOTED. WILL CONTINUE TO CLOSELY MONITOR. CALL LIGHT REMAINS WITHIN REACH.
--- NOTE | 2017-12-30 22:53 | NUR ---
NEB TREATMENT IN PROGRESS AT THIS TIME.
[2017-12-31] VITALS (7 sets, daily range): BP systolic 128–178; BP diastolic 54–100
--- NOTE | 2017-12-31 00:18 | NUR ---
PT. RESTING IN BED WITH EYES CLOSED. PROLONGED EXP PHASE NOTED. PT. REMAINS STABLE ON THE MONITOR. BP/HR STABLE. CALL LIGHT REMAINS WITHIN REACH. WILL CONTINUE TO MONITOR.
--- NOTE | 2017-12-31 00:35 | NUR ---
LABS OBTAINED AT THIS TIME. PT. CONTINUES TO REST IN RECLINER AT BEDSIDE. REMAINS IN NO DISTRESS. WILL CONTINUE TO ASSESS.
--- NOTE | 2017-12-31 01:05 | NUR ---
LAB AT BEDSIDE AT THIS TIME. PT. REMAINS EASILY AROUSABLE TO LIGHT VERBAL STIMULI. BP/HR STABLE. WILL CONTINUE TO ASSESS.
--- NOTE | 2017-12-31 03:00 | NUR ---
PT. RESTING IN BED WITH EYES CLOSED. RESPS EVEN, SHALLOW, UNLABORED. SKIN WARM AND DRY. VSS. VOICES NO COMPLAINTS OR NEEDS AT THIS TIME.
--- NOTE | 2017-12-31 04:34 | NUR ---
PT. AWAKE, ALERT, ORIENTED X 3. REMAINS WATCHING TELEVISION AT THIS TIME. INTERMITTENT COUGH NOTED. PT. STATES SHE IS "FEELING GOOD". DENIES COMPLAINTS OF PAIN OR NEEDS AT THIS TIME. CALL LIGHT REMAINS WITHIN REACH. PROBIDED WITH DIET COLA AT THIS TIME.
--- NOTE | 2017-12-31 05:48 | NUR ---
NEB TREATENT IN PROGRESS AT THIS TIME. PT. TOLERATING WELL. CONTINUES TO DENY COMPLAINTS OR NEEDS AT THIS IIME. WILL CONTINUE TO MONITOR.
--- NOTE | 2017-12-31 06:20 | NUR ---
LAB AT BEDSIDE AT THIS TIME. PT. REQUESTING TO GO TO MED/SURG. PT. INFORMED TO REQUEST THIS WHEN THE PHYSICIAN COMES TO SEE HER THIS MORNING.
--- NOTE | 2017-12-31 06:30 | NUR ---
RECIEVED REPORT FROM JOHN BIRCH. ASSUMED PT CARE.
[2017-12-31 06:51] LABS: HEMOGLOBIN 11.4 g/dl (12.0-16.0); IMMATURE GRANULOCYTES 0.6 % (0.0-5.0); MEAN CELL VOLUME 96.7 fL CALC (80.0-100.0); MEAN CORPUSCULAR HGB 31.5 pG CALC (26.0-32.0); MEAN CORPUSCULAR HGB CONC 32.6 g/L CALC (32.0-36.0); NEUT# 14.07 thou/uL (2.00-7.15); RED BLOOD COUNT 3.62 mill/uL (4.20-5.60); RED CELL DISTRI WIDTH 14.9 % (11.5-15.5)
--- NOTE | 2017-12-31 07:00 | NUR ---
PT A&OX3, ABLE TO MAKE NEEDS KNOWN. PERRL. ST ON TELEMETRY, HR 101. PT DENIES CHEST PAIN OR DISTRESS AT THIS TIME. RESPIRATIONS SHALLOW/ EVEN/UNLABORED. SA02@91% ON 2LPM VIA NC, RR-21, LS WITH RHONCHI IN UPPER LOBES, DIMINISHED IN LOWER LOBES. ABDOMEN SOFT/DISTENDED/NON-TENDER. PT STATES LAST BM 1118, BSX4 HYPOACTIVE. PT CONTINUES WITH ZUÑIGA, ZUÑIGA CARE PROVIDED, PATENT DRAINING TO BSD, YELLOW CLEAR URINE. NO EDEMA NOTED, SKIN CDI. PT RESTING IN BED WITH CALL LIGHT IN PLACE. WILL MONITOR.
[2017-12-31 07:05] LABS: ALBUMIN 3.9 g/dL (3.2-5.0); ALKALINE PHOSPHATASE 107 u/l (38-126); ANION GAP 11 (6-22 (CALC)); BILIRUBIN, TOTAL 0.3 mg/dL (0.0-1.4); BUN 15 mg/dL (8-23); BUN/CREATININE RATIO 25 (12-20 (CALC)); CARBON DIOXIDE 36 mmol/l (22-30); CHLORIDE 91 mmol/l (95-108); CREATININE 0.6 mg/dL (0.5-1.0); GFR > 60 ML/MIN (>=60 (CALC)); GFR FOR AFR.AMER. > 60 ML/MIN (>=60 (CALC)); MAGNESIUM 2.2 mg/dL (1.6-2.3); POTASSIUM 3.3 mmol/l (3.5-5.1); SGOT/AST 26 u/l (9-36); SODIUM 135 mmol/l (137-146); TOTAL PROTEIN 7.2 g/dL (6.3-8.2)
--- NOTE | 2017-12-31 07:15 | NUR ---
PT REQUESTED A DIET COKE AND THE PORTABLE PHONE TO CALL HER SON, REQUEST GRANTED.
--- NOTE | 2017-12-31 07:30 | NUR ---
DIETARY ON UNIT, BREAKFAST TRAY SET UP. CALL LIGHT IN REACH. WILL MONITOR.
--- NOTE | 2017-12-31 09:00 | NUR ---
PT NEIGHBORS IN AT BEDSIDE FOR VISIT.
--- NOTE | 2017-12-31 09:40 | NUR ---
PT MEDICATED WITH APRESOLINE PRN ORDERED FOR B/P 178/96. WILL MONITOR.
[2017-12-31] MEDS ORDERED: AMLODIPINE BESYL5 MG PO (09:59)
--- NOTE | 2017-12-31 10:30 | NUR ---
DR. POLLOCK AT BEDSIDE FOR ASSESSMENT AND TO DISCUSS PLAN OF CARE. NEW ORDERS RECIEVED.
[2017-12-31] MEDS ORDERED: BUSPAR10 M1 PO (10:45)
--- NOTE | 2017-12-31 10:45 | NUR ---
IV site discontinued, cath intact. No edema , no redness, voices no discomfort.
[2017-12-31] MEDS ORDERED: BUSPAR10 MG PO (10:46)
--- NOTE | 2017-12-31 10:50 | NUR ---
DISCONTINUED ZUÑIGA CATHETER, 10ML BALLOON DEFLATED PRIOR TO WITHDRAWAL. PT TOLERATED WELL.
--- NOTE | 2017-12-31 11:45 | NUR ---
Discharge instructions given. Patient verbalizes understanding of same. Discharged in stable condition via Wheelchair to Home with family. All belongings sent with pt. PAPER PRESCRIPTION SENT HOME WITH PT.
== END 2017-12-31 11:45 | disposition home or self-care (01) | DRG 292 ==
LOC: ED 14:22 → ED-I 15:54 → ED 16:15 → ICU 16:16
PROVIDERS: Emergency Medicine; ADMIT Internal Medicine Nephrology; ATTEND Internal Medicine Nephrology
PROC: 5A09357 Assistance with Respiratory Ventilation, Less than 24 Consecutive Hours, Continuous Positive Airway Pressure (ICD-10-PCS; principal; 2017-12-30)
PROC: 0T9B70Z Drainage of Bladder with Drainage Device, Via Natural or Artificial Opening (ICD-10-PCS; 2017-12-30)
DX: I11.0 Hypertensive heart disease with heart failure (principal); J44.1 Chronic obstructive pulmonary disease with (acute) exacerbation; E87.1 Hypo-osmolality and hyponatremia; E87.2 Acidosis; J44.0 Chronic obstructive pulmonary disease with (acute) lower respiratory infection; I50.9 Heart failure, unspecified; I16.0 Hypertensive urgency; Z99.81 Dependence on supplemental oxygen; J20.9 Acute bronchitis, unspecified; D50.9 Iron deficiency anemia, unspecified; F41.0 Panic disorder [episodic paroxysmal anxiety]; F32.9 Major depressive disorder, single episode, unspecified; T38.0X5A Adverse effect of glucocorticoids and synthetic analogues, initial encounter; E87.6 Hypokalemia; D72.829 Elevated white blood cell count, unspecified
CPT/HCPCS: J1650; J3370

== ENCOUNTER 2018-07-04 19:07 | Inpatient (IN) | payer MEDICARE, OTHER ==
[~2018-07-04] VITALS: Ht 165.1 cm; Wt 91.0 kg
[~2018-07-04 19:07] MED LIST changes: +AMLODIPINE BESYL5 MG PO; +BUSPAR10 M1 PO; +BUSPAR10 MG PO; -HYDROCO/APAP1 TA9 PO; +HYDROCODONE BIT1 TA7
[2018-07-04 19:54] LABS: HEMATOCRIT 30.6 % (37.0-47.0); HEMOGLOBIN 9.8 g/dl (12.0-16.0); IMMATURE GRANULOCYTES 0.6 % (0.0-5.0); MEAN CELL VOLUME 97.1 fL CALC (80.0-100.0); MEAN CORPUSCULAR HGB 31.1 pG CALC (26.0-32.0); NEUT# 9.3 thou/uL (2.00-7.15); RED BLOOD COUNT 3.15 mill/uL (4.20-5.60); RED CELL DISTRI WIDTH 21.4 % (11.5-15.5)
[2018-07-04 20:04] LABS: ALKALINE PHOSPHATASE 162 u/l (38-126); ANION GAP 11 (6-22 (CALC)); BILIRUBIN, TOTAL 0.8 mg/dL (0.0-1.4); BUN 6 mg/dL (8-23); BUN/CREATININE RATIO 9 (12-20 (CALC)); CARBON DIOXIDE 36 mmol/l (22-30); CHLORIDE 90 mmol/l (95-108); CREATININE 0.6 mg/dL (0.5-1.0); GFR > 60 ML/MIN (>=60 (CALC)); GFR FOR AFR.AMER. > 60 ML/MIN (>=60 (CALC)); POTASSIUM 3.8 mmol/l (3.5-5.1); SGOT/AST 22 u/l (9-36); SODIUM 134 mmol/l (137-146); TOTAL PROTEIN 7.5 g/dL (6.3-8.2)
[2018-07-04 20:10] LABS: URINE BILIRUBIN - DIPSTICK NEGATIVE (NEGATIVE); URINE BLOOD DIPSTICK NEGATIVE (NEGATIVE); URINE COLOR YELLOW; URINE GLUCOSE - DIPSTICK NEGATIVE (NEGATIVE); URINE KETONE NEGATIVE (NEGATIVE); URINE LEUK ESTERASE NEGATIVE (NEGATIVE); URINE NITRITE - DIPSTICK NEGATIVE (Negative); URINE PH 8.5 (4.5-8.0); URINE PROTEIN - DIPSTICK NEGATIVE (NEG-TRACE); URINE SPECIFIC GRAVITY 1.015; URINE UROBILINOGEN - DIPSTICK 0.2 E.U./dL (0.2)
[2018-07-04 20:12] LABS: MYOGLOBIN 42 ng/mL (0 - 62)
[2018-07-04 22:39] VITALS: BP 120/78
[2018-07-05 04:30] VITALS: BP 98/58
[2018-07-05 09:20] VITALS: BP 122/73
[2018-07-05 11:02] VITALS: BP 102/63
[2018-07-05 15:00] VITALS: BP 104/60
[2018-07-05 19:00] VITALS: BP 108/65
[2018-07-05 23:25] VITALS: BP 110/66
[2018-07-06 03:26] VITALS: BP 110/68
[2018-07-06 05:18] LABS: HEMATOCRIT 24.7 % (37.0-47.0); HEMOGLOBIN 8.1 g/dl (12.0-16.0); MEAN CELL VOLUME 95.7 fL CALC (80.0-100.0); MEAN CORPUSCULAR HGB 31.4 pG CALC (26.0-32.0); MEAN CORPUSCULAR HGB CONC 32.8 g/L CALC (32.0-36.0); RED BLOOD COUNT 2.58 mill/uL (4.20-5.60); RED CELL DISTRI WIDTH 21.5 % (11.5-15.5)
[2018-07-06 05:41] LABS: ANION GAP 11 (6-22 (CALC)); BUN 9 mg/dL (8-23); BUN/CREATININE RATIO 17 (12-20 (CALC)); CARBON DIOXIDE 31 mmol/l (22-30); CHLORIDE 92 mmol/l (95-108); CREATININE 0.6 mg/dL (0.5-1.0); GFR > 60 ML/MIN (>=60 (CALC)); GFR FOR AFR.AMER. > 60 ML/MIN (>=60 (CALC)); POTASSIUM 4.1 mmol/l (3.5-5.1); SODIUM 129 mmol/l (137-146)
[2018-07-06 08:20] VITALS: BP 118/66
[2018-07-06] MEDS ORDERED: DOXYCYCL HYC100 MG PO (11:21)
[2018-07-06 11:31] VITALS: BP 126/64
[2018-07-06] MEDS ORDERED: AMBIEN5 MG PO (12:02)
== END 2018-07-06 15:27 | DRG 191 ==
LOC: ED 19:07 → ED-I 21:00 → ED 21:27 → MS2 21:28
PROVIDERS: Emergency Medicine; ADMIT Internal Medicine; ATTEND Internal Medicine
PROC: 0T9B70Z Drainage of Bladder with Drainage Device, Via Natural or Artificial Opening (ICD-10-PCS; principal; 2018-07-05)
DX: J43.9 Emphysema, unspecified (principal); J96.10 Chronic respiratory failure, unspecified whether with hypoxia or hypercapnia; G93.1 Anoxic brain damage, not elsewhere classified; E87.1 Hypo-osmolality and hyponatremia; D50.9 Iron deficiency anemia, unspecified; I10 Essential (primary) hypertension; F32.9 Major depressive disorder, single episode, unspecified; F41.0 Panic disorder [episodic paroxysmal anxiety]; Z99.81 Dependence on supplemental oxygen; Z87.891 Personal history of nicotine dependence
CPT/HCPCS: G0378; J0131

== ENCOUNTER 2018-07-07 12:13 | Emergency (ER) | payer MEDICARE, OTHER ==
[~2018-07-07] VITALS: Ht 165.1 cm; Wt 85.0 kg
[~2018-07-07 12:13] MED LIST changes: +AMBIEN5 MG PO
[2018-07-07 12:52] VITALS: BP 160/77
== END 2018-07-07 12:52 | disposition home or self-care (01) ==
LOC: ED 12:13
DX: J43.9 Emphysema, unspecified (principal); I10 Essential (primary) hypertension

== ENCOUNTER 2018-07-07 18:03 | Inpatient (IN) | payer MEDICARE, OTHER ==
[~2018-07-07] VITALS: Ht 165.1 cm; Wt 95.5 kg
[2018-07-07 18:31] LABS: IMMATURE GRANULOCYTES 1.1 % (0.0-5.0); MEAN CORPUSCULAR HGB 31.3 pG CALC (26.0-32.0); MEAN CORPUSCULAR HGB CONC 32.6 g/L CALC (32.0-36.0); NEUT# 14.37 thou/uL (2.00-7.15); RED BLOOD COUNT 3.23 mill/uL (4.20-5.60); RED CELL DISTRI WIDTH 21.5 % (11.5-15.5)
[2018-07-07 18:49] LABS: ANION GAP 12 (6-22 (CALC)); BUN 9 mg/dL (8-23); BUN/CREATININE RATIO 20 (12-20 (CALC)); CARBON DIOXIDE 35 mmol/l (22-30); CHLORIDE 86 mmol/l (95-108); CREATININE 0.4 mg/dL (0.5-1.0); GFR > 60 ML/MIN (>=60 (CALC)); GFR FOR AFR.AMER. > 60 ML/MIN (>=60 (CALC)); POTASSIUM 3.4 mmol/l (3.5-5.1); SODIUM 129 mmol/l (137-146)
[2018-07-07 19:00] LABS: HEMOGLOBIN 10.1 g/dl (12.0-16.0)
[2018-07-07 21:00] LABS: URINE BILIRUBIN - DIPSTICK NEGATIVE (NEGATIVE); URINE BLOOD DIPSTICK NEGATIVE (NEGATIVE); URINE COLOR YELLOW; URINE GLUCOSE - DIPSTICK NEGATIVE (NEGATIVE); URINE KETONE NEGATIVE (NEGATIVE); URINE LEUK ESTERASE NEGATIVE (NEGATIVE); URINE NITRITE - DIPSTICK NEGATIVE (Negative); URINE PH 6.5 (4.5-8.0); URINE PROTEIN - DIPSTICK NEGATIVE (NEG-TRACE); URINE UROBILINOGEN - DIPSTICK 0.2 E.U./dL (0.2)
[2018-07-07 22:00] VITALS: BP 139/70
[2018-07-07 22:15] VITALS: BP 106/63
[2018-07-07 22:30] VITALS: BP 120/74
[2018-07-07 23:00] VITALS: BP 90/61
[2018-07-08] VITALS (70 sets, daily range): BP systolic 99–165; BP diastolic 55–98
[2018-07-08 05:02] LABS: HEMATOCRIT 28.5 % (37.0-47.0); HEMOGLOBIN 9.3 g/dl (12.0-16.0); IMMATURE GRANULOCYTES 1.2 % (0.0-5.0); MEAN CORPUSCULAR HGB 31.3 pG CALC (26.0-32.0); MEAN CORPUSCULAR HGB CONC 32.6 g/L CALC (32.0-36.0); NEUT# 11.33 thou/uL (2.00-7.15); RED BLOOD COUNT 2.97 mill/uL (4.20-5.60); RED CELL DISTRI WIDTH 21.1 % (11.5-15.5)
[2018-07-08 05:26] LABS: ALBUMIN 3.5 g/dL (3.2-5.0); ALKALINE PHOSPHATASE 117 u/l (38-126); ANION GAP 11 (6-22 (CALC)); BILIRUBIN, TOTAL 0.5 mg/dL (0.0-1.4); BUN 8 mg/dL (8-23); BUN/CREATININE RATIO 18 (12-20 (CALC)); CARBON DIOXIDE 35 mmol/l (22-30); CHLORIDE 91 mmol/l (95-108); CREATININE 0.4 mg/dL (0.5-1.0); GFR > 60 ML/MIN (>=60 (CALC)); GFR FOR AFR.AMER. > 60 ML/MIN (>=60 (CALC)); LIPASE 11 u/l (23-300); MAGNESIUM 1.9 mg/dL (1.6-2.3); SGOT/AST 25 u/l (9-36); SODIUM 132 mmol/l (137-146); TOTAL PROTEIN 6.4 g/dL (6.3-8.2)
[2018-07-08 05:29] LABS: AMYLASE < 30 u/l (30-110)
[2018-07-08 09:09] LABS: CHOLESTEROL HDL RATIO 2.8 (<4.4 (CALC))
[2018-07-08 09:39] LABS: URINE BILIRUBIN - DIPSTICK NEGATIVE (NEGATIVE); URINE BLOOD DIPSTICK NEGATIVE (NEGATIVE); URINE COLOR YELLOW; URINE GLUCOSE - DIPSTICK NEGATIVE (NEGATIVE); URINE KETONE NEGATIVE (NEGATIVE); URINE LEUK ESTERASE NEGATIVE (Negative); URINE NITRITE - DIPSTICK NEGATIVE (Negative); URINE PROTEIN - DIPSTICK NEGATIVE (NEG-TRACE); URINE UROBILINOGEN - DIPSTICK 0.2 E.U./dL (0.2)
[2018-07-08 10:18] LABS: URINE CLARITY CLEAR
[2018-07-09] VITALS (57 sets, daily range): BP systolic 111–161; BP diastolic 64–95
[2018-07-09 05:04] LABS: HEMATOCRIT 27.4 % (37.0-47.0); IMMATURE GRANULOCYTES 1.2 % (0.0-5.0); MEAN CELL VOLUME 95.5 fL CALC (80.0-100.0); MEAN CORPUSCULAR HGB 31.4 pG CALC (26.0-32.0); MEAN CORPUSCULAR HGB CONC 32.8 g/L CALC (32.0-36.0); NEUT# 11.52 thou/uL (2.00-7.15); RED BLOOD COUNT 2.87 mill/uL (4.20-5.60); RED CELL DISTRI WIDTH 21.8 % (11.5-15.5)
[2018-07-09 05:15] LABS: ALBUMIN 3.2 g/dL (3.2-5.0); ALKALINE PHOSPHATASE 106 u/l (38-126); BILIRUBIN, TOTAL 0.7 mg/dL (0.0-1.4); BUN 10 mg/dL (8-23); BUN/CREATININE RATIO 21 (12-20 (CALC)); CARBON DIOXIDE 36 mmol/l (22-30); CHLORIDE 91 mmol/l (95-108); CREATININE 0.5 mg/dL (0.5-1.0); GFR > 60 ML/MIN (>=60 (CALC)); GFR FOR AFR.AMER. > 60 ML/MIN (>=60 (CALC)); MAGNESIUM 2.1 mg/dL (1.6-2.3); SGOT/AST 36 u/l (9-36); SODIUM 132 mmol/l (137-146); TOTAL PROTEIN 5.9 g/dL (6.3-8.2)
[2018-07-09 05:20] LABS: ANION GAP 8 (6-22 (CALC)); POTASSIUM 3.1 mmol/l (3.5-5.1)
[2018-07-09] MEDS ORDERED: ZANTAC 150 PO (09:29)
[2018-07-09] MEDS ORDERED: SINGULAIR10 MG PO (09:30)
[2018-07-09] MEDS ORDERED: PRILOSEC20 MG/CAP PO (09:34)
[2018-07-09] MEDS ORDERED: PRAMIPEXOLE0.125 M1 PO (09:35)
[2018-07-09] MEDS ORDERED: CLONAZEPAM0.5 MG PO (09:35)
[2018-07-09] MEDS ORDERED: TRELEGY ELLIPTA1 AER (09:36)
[2018-07-09] MEDS ORDERED: AMLODIPINE5 MG PO (09:44)
[2018-07-10] VITALS (11 sets, daily range): BP systolic 108–159; BP diastolic 66–87
[2018-07-10 05:01] LABS: HEMATOCRIT 29.7 % (37.0-47.0); HEMOGLOBIN 9.9 g/dl (12.0-16.0); MEAN CELL VOLUME 94.9 fL CALC (80.0-100.0); MEAN CORPUSCULAR HGB 31.6 pG CALC (26.0-32.0); MEAN CORPUSCULAR HGB CONC 33.3 g/L CALC (32.0-36.0); NEUT# 13.22 thou/uL (2.00-7.15); RED BLOOD COUNT 3.13 mill/uL (4.20-5.60)
[2018-07-10 05:12] LABS: ALBUMIN 3.2 g/dL (3.2-5.0); ALKALINE PHOSPHATASE 107 u/l (38-126); ANION GAP 7 (6-22 (CALC)); BILIRUBIN, TOTAL 0.8 mg/dL (0.0-1.4); BUN 12 mg/dL (8-23); BUN/CREATININE RATIO 29 (12-20 (CALC)); CARBON DIOXIDE 39 mmol/l (22-30); CHLORIDE 87 mmol/l (95-108); CREATININE 0.4 mg/dL (0.5-1.0); GFR > 60 ML/MIN (>=60 (CALC)); GFR FOR AFR.AMER. > 60 ML/MIN (>=60 (CALC)); LIPASE 14 u/l (23-300); MAGNESIUM 2.1 mg/dL (1.6-2.3); POTASSIUM 2.9 mmol/l (3.5-5.1); SGOT/AST 31 u/l (9-36); SODIUM 130 mmol/l (137-146)
[2018-07-10 05:13] LABS: AMYLASE < 30 u/l (30-110)
== END 2018-07-10 10:37 | DRG 208 ==
LOC: ED 18:03 → ED-I 19:14 → ED 19:17 → ICU 19:18
PROVIDERS: Family Medicine; Nurse Practitioner Family; ADMIT Internal Medicine Nephrology; ATTEND Internal Medicine Nephrology
PROC: 5A09357 Assistance with Respiratory Ventilation, Less than 24 Consecutive Hours, Continuous Positive Airway Pressure (ICD-10-PCS; 2018-07-07)
PROC: 0BH17EZ Insertion of Endotracheal Airway into Trachea, Via Natural or Artificial Opening (ICD-10-PCS; principal; 2018-07-08)
PROC: 5A1945Z Respiratory Ventilation, 24-96 Consecutive Hours (ICD-10-PCS; 2018-07-08)
PROC: 0T9B70Z Drainage of Bladder with Drainage Device, Via Natural or Artificial Opening (ICD-10-PCS; 2018-07-08)
PROC: 02HV33Z Insertion of Infusion Device into Superior Vena Cava, Percutaneous Approach (ICD-10-PCS; 2018-07-09)
DX: J96.02 Acute respiratory failure with hypercapnia (principal); J69.0 Pneumonitis due to inhalation of food and vomit; E87.1 Hypo-osmolality and hyponatremia; E87.2 Acidosis; J43.9 Emphysema, unspecified; I10 Essential (primary) hypertension; E78.5 Hyperlipidemia, unspecified; F17.200 Nicotine dependence, unspecified, uncomplicated; F41.8 Other specified anxiety disorders; D50.9 Iron deficiency anemia, unspecified; D51.9 Vitamin B12 deficiency anemia, unspecified; M19.90 Unspecified osteoarthritis, unspecified site; F41.0 Panic disorder [episodic paroxysmal anxiety]; Z78.1 Physical restraint status
CPT/HCPCS: J1650; S0164